=== PATIENT | female | born 1950 ===

== ENCOUNTER 2025-07-03 10:49 | Outpatient (CLI) | payer MEDICARE, SELFPAY ==
--- NOTE | 2025-07-03 10:46 | DI.RAD_ITS ---
Exam(s) XR PELVIS AP EXAM: XR PELVIS AP CLINICAL HISTORY: R THR Planning. TECHNIQUE: 2D digital imaging was performed.One images were obtained. COMPARISON: CR XR HIP MIN 2V RT from 12/21/2024 FINDINGS: BONES: No acute fracture is present. No bony destructive lesion is seen. JOINTS: No dislocation present. In the right hip, there is moderate joint space narrowing. Osteophytes are seen arising from the acetabular roof and the femoral head. In the left hip, there is mild joint space narrowing present. There osteophytes seen at the acetabulum and the femoral head. SOFT TISSUE: Normal. IMPRESSION: Osteoarthritis of the hips, right greater than left. DATA REPOSITORY: RADIATION DOSE DELIVERED:
== END 2025-07-03 10:50 | disposition home or self-care (01) ==
LOC: DIORS 10:49
PROVIDERS: Visit Provider Student in an Organized Health Care Education/Training Program
DX: M16.11 Unilateral primary osteoarthritis, right hip (principal)
CPT/HCPCS: 99204; 72170